=== PATIENT | male | born 1970 | race Caucasian/White ===

== ENCOUNTER 2024-01-03 15:20 | Outpatient (CLI) | payer OTHER, SELFPAY ==
--- NOTE | ~2024-01-03 | CT_ITS ---
EXAMINATION:CT lung screening DATE: 01/03/2024 15:43 INDICATION: Persistently of nicotine dependence. 30 pack year history. TECHNIQUE: Computed tomography (CT) of the chest was performed without intravenous contrast. Automate d exposure control and iterative reconstruction technique were employed. The dose-length product (DLP ) was 84.04 mGy-cm. COMPARISON: None. FINDINGS: A calcified left lung nodule is consistent with old granulomatous disease. There is no pneu monia or pleural effusion. The heart size is normal. There are coronary artery calcifications. No per icardial effusion. There is ectasia of ascending aorta measuring 4.0 cm. There is an old healed fract ure of right clavicle. There is mild thoracic spondylosis. IMPRESSION: 1. Lung-RADS category 1: Negative. Continue annual screening with noncontrast low-dose chest CT in 12 months. Reviewed, dictated and finalized at location A. PACKER IMPRESSION: 1. Lung-RADS category 1: Negative. Continue annual screening with noncontrast l ow-dose chest CT in 12 months.
== END 2024-01-03 15:21 | disposition home or self-care (01) ==
PROVIDERS: PCP Family Medicine; Visit Provider Family Medicine
DX: Z12.2 Encounter for screening for malignant neoplasm of respiratory organs (principal); Z87.891 Personal history of nicotine dependence
CPT/HCPCS: 71271

== ENCOUNTER 2024-04-07 15:07 | Outpatient (CLI) | payer OTHER, SELFPAY ==
--- NOTE | ~2024-04-07 | XR_ITS ---
EXAMINATION: No acute fracture. DATE: 04/07/2024 15:44 INDICATION: Left jaw pain. TECHNIQUE: 5 views of the mandible were obtained. COMPARISON: None. FINDINGS: Alignment is normal. No acute fracture. There is an old healed fracture of left mandible ra mus. There is plate and screw fixation of right body of the mandible. The temporomandibular joints ar e unremarkable. IMPRESSION: 1. No acute fracture. Reviewed, dictated and finalized at location A. N HIDE INSPECTOR IMPRESSION: 1. No acute fracture.
--- OUTSIDE RECORDS SUMMARY | 2024-04-07 15:13 | XMS_ITS | Clinical Summary ---
Author Organization [facility] Address [address] [place] [address] Care Team Providers Care Manager Workers Compensation Name Role Phone Prince Morales MD Primary Care Provider Allergies No known active allergies Medications HYDROcodone-maria victoria taminophen (NORCO) 5-325 MG tabletIndicatio ns:Acute Pain < 7 Day Supply,Clavicle fracture Take 1 tablet by mouth every 4 (four) hours as needed. 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 Gender Identity Not on file Sexual Orientation Not on file Last Filed Vital Signs Vital Sign Reading Time Taken Comments Blood Pressure 134/101 12/20/2021 5:20 PM CDT Pulse 77 12/20/2021 5:20 PM CDT Temperature 36.5 C (97.7 F) 12/20/2021 5:20 PM CDT Respiratory Rate 18 12/20/2021 5:20 PM CDT Oxygen Saturation 99% 12/20/2021 5:20 PM CDT Inhaled Oxygen Concentration - - Weight 72.6 kg (160 lb) 12/20/2021 5:20 PM CDT Height 170.2 cm (5' 7 ) 12/20/2021 5:20 PM CDT Body Mass Index 25.06 12/20/2021 5:20 PM CDT Plan of Treatment Health Maintenance Due Date Last Done Comments Colorectal Cancer Screening Colonoscopy (10 Years) 1968 Annual Physical 11/17/1971 Pneumococcal Vaccine: Pediatrics (0 to 5 Years) and At-Risk Patients (6 to 64 Years) (1 of 2 - PCV) 1974 Hepatitis C 1986 Hepatitis B Vaccines (1 of 3 - 19+ 3-dose series) 11/17/1987 Zoster Vaccines (1 of 2) 2018 COVID-19 Vaccine (3 - 2023-2 5 season) 2023 07/27/2020, 07/06/2020 Influenza Adult (#1) 2023 03/25/2018 DTaP, Tdap and Td Vaccines ( 2 - Td or Tdap) 06/12/2030 06/12/2020 Meningococcal B Vaccine Aged Out No l onger eligible based on patient's age to complete this topic Meningococcal Vaccine Aged Out No brittany capri eligible based on patient's age to complete this topic RSV Immunizations Under 20 Months Aged Out No longer eligible b ased on patient's age to complete this topic Insurance [employer] [place] Advance Directives Documents on File Type Date Recorded Patient Legal Executive 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
== END 2024-04-07 15:08 | disposition home or self-care (01) ==
PROVIDERS: PCP Family Medicine; Visit Provider Family Medicine
DX: R68.84 Jaw pain (principal)
CPT/HCPCS: 70110

== ENCOUNTER 2024-07-03 10:39 | Emergency (ER) | payer OTHER, SELFPAY ==
[2024-07-03] VITALS (18 sets, daily range): BP systolic 148–175; BP diastolic 102–122; PULSE 78–84; RESP 16–20; TEMP 36.6–36.9; O2SAT 94–98
--- NOTE | 2024-07-03 10:42 | ED_ITS ---
HPI - General Adult General Chief complaint: Headache Stated complaint: high blood pressure Time Seen by Provider: 07/03/24 10:41 Source: patient Mode of arrival: ambulatory Limitations: no limitations History of Present Illness HPI narrative: patient is 53-year-old white male comes in with his blood pressure elevated he said this morning it was 228/120. His primary care provider has been trying to figure out if he is as high blood pressure or not he saw him about a month and half ago with left jaw pain and infection and was treated with antibiotic and pain medicine. He had a history of left jaw fracture 3 years ago and has had recurrent infections and pain and was sent to the surgeon who want to get a CT done which is never been done yet. . patient has moderate his blood pressure couple times is been elevated but he has not had any treatment for this. Denies any chest pain back pain abdominal pain nausea vomiting diarrhea problems walking talking seeing or hearing eating or drinking voiding or stooling swelling lumps or bumps dizziness or lightheadedness or any other complaint he says he drinks pretty heavily. He said he drinks daily usually 3 shooters and 2 big boys which are 24 oz beers. Patient denies any other complai Related Data Allergies Allergy/AdvReac Type Severity Reaction Status Date / Time No Known Allergies Allergy Mild Verified 07/03/24 10:58 Review of Systems 2 Review of Systems: All systems reviewed & are unremarkable except as noted in HPI and below Exam 2 Narrative: White male patient with no apparent distress. Head normocephalic, atraumatic. Eyes conjunctiva pink sclera nonicteric. Extraocular movements are intact. Ears externally normal. Oropharynx is clear with moist mucous membranes without exudates. Neck is supple nontender no lymphadenopathy. hours normal size and consistency Back is nontender. Lungs are clear. Heart is regular rate and rhythm without murmurs gallops or rubs. Chest wall nontender. Abdomen is soft and nontender no hepatosplenomegaly or masses no CVA tenderness no abdominal bruits. Extremities no cyanosis clubbing or edema. Skin is warm and dry without rashes or lesions. Neurological patient is alert and oriented x 4. Motor and sensory grossly intact. Gait is normal. Course Vital Signs Vital signs: Vital Signs Temperature 36.9 C 07/03/24 10:41 Pulse Rate 84 07/03/24 10:41 Respiratory Rate 16 07/03/24 10:41 Blood Pressure 169/122 H 07/03/24 10:41 Pulse Oximetry 98 07/03/24 10:41 Oxygen Delivery Room Air 07/03/24 10:41 Temperature 36.9 C 07/03/24 10:41 Pulse Rate 84 07/03/24 10:41 Respiratory Rate 16 07/03/24 10:41 Blood Pressure 169/122 H 07/03/24 10:41 Pulse Oximetry 98 07/03/24 10:41 Oxygen Delivery Room Air 07/03/24 10:41 Medical Decision Making MDM Narrative Medical decision making narrative: Patient was placed in Room # 1 History and physical was performed. troponin,CBC CMP, magnesium, alcohol TSH normal Urine Independent Historian: patient External Source Review: Differential Dx includes but not limited to: hyperthyroidism hypertension anxiety electrolyte imbalance Medications were Reviewed: home meds reviewed Independently Interpreted by me: EKG shows sinus rhythm With rate of 77 or RS progression across precordium nonspecific ST T wave abnormalities impression abnormal EKG as independently interpreted by me. Meds, treatment, ED course: blood pressure was observed it to come down 151 over 102. Social Situation Impacting Patients Care: Shared decision Making: evaluation was discussed all questions were asked and answered patient agreed with plan will start him on lisinopril 5 mg he will see his doctor in the next 1-2 weeks. He will record his blood pressure 1-2 times per day Discussed with Dr. BROWNLEE DIAGNOSIS: hypertension alcohol abuse DISPOSITION: discharge patient CONDITION AT DISCHARGE: stable Vital Signs Vital Signs: Vital Signs Temperature 36.9 C 07/03/24 10:41 Pulse Rate 84 07/03/24 10:41 Respiratory Rate 16 07/03/24 10:41 Blood Pressure 169/122 H 07/03/24 10:41 Pulse Oximetry 98 07/03/24 10:41 Oxygen Delivery Room Air 07/03/24 10:41 Temperature 36.9 C 07/03/24 10:41 Pulse Rate 84 07/03/24 10:41 Respiratory Rate 16 07/03/24 10:41 Blood Pressure 169/122 H 07/03/24 10:41 Pulse Oximetry 98 07/03/24 10:41 Oxygen Delivery Room Air 07/03/24 10:41 Lab Data 07/03/24 11:17 07/03/24 11:17 Labs: Lab Results 07/03/24 07/03/24 Range/Units 11:06 11:17 WBC 7.7 (4.8-10.8) K/mm3 RBC 4.49 L (4.70-6.10) M/mm3 Hgb 14.7 (14.0-18.0) g/dL Hct 44.5 (40.0-54.0) % MCV 99.1 (78.0-102.0) fL MCH 32.7 H (27.0-31.0) pg MCHC 33.0 (32-36) g/dL RDW 13.1 (11.6-14.4) % Plt Count 276 (150-420) K/mm3 MPV 10.0 (8.7-11.0) fl Sodium 140 (136-145) mmol/L Potassium 4.1 (3.5-5.1) mmol/L Chloride 102 (98-108) mmol/L Carbon Dioxide 26 (21-32) mmol/L Anion Gap 12 (4-12) mmol/L BUN 11 (7-18) mg/dL Creatinine 1.03 (0.70-1.30) mg/dL Estim Creat Clear Calc 67 ml/min Estimated GFR > 60 (59 - ) Glucose 118 H (70-99) mg/dL Calculated Osmolality 290 (285-295) mOsm/kg Calcium 9.1 (8.5-10.1) mg/dL Magnesium 1.9 (1.8-2.4) mg/dL Total Bilirubin 0.7 (0.00-1.00) mg/dL AST 23 (15-37) U/L ALT 43 (16-63) U/L Alkaline Phosphatase 71 (46-116) U/L Troponin I 5.5 (0.00-60.4) ng/L Total Protein 7.8 (6.4-8.2) g/dL Albumin 3.9 (3.4-5.0) g/dL TSH 1.314 (0.465-4.680) uIU/mL Urine Color Light yellow (Yellow) Urine Appearance Clear (Clear) Urine pH 5.5 (5.0-8.0) Ur Specific [place] 1.025 H (1.010-1.020) Urine Protein Negative (Negative) Urine Glucose (UA) Negative (Negative) Urine Ketones Negative (Negative) Ur Blood (Man) Negative (Negative) Urine Nitrate Negative (Negative) Urine Bilirubin Negative (Negative) Urine Urobilinogen 0.2 (0.2-1.0) mg/dL Ur Leukocyte Esterase Trace H (Negative) Urine RBC None seen (0-2) /hpf Urine WBC 0-5 (0-3) /hpf Ur Squamous Epith Cells Few (Few) /hpf Urine Bacteria Trace (None) /hpf Ethyl Alcohol < 3 (0-6) mg/dL Discharge Plan Discharge Clinical Impression: Hypertension, uncontrolled, Alcohol abuse Patient Disposition: Home Condition: Stable Instructions: Hypertension (ED) Additional Instructions: lisinopril 5 mg daily see your primary care provider in 1 to [address] scan of your left jaw from your surgeon as previously discussed. Right done your blood pressure once or twice a day during morning noon and night bedtime with the comments section as discussed take that to both your doctors. Return if you get worse or develops any new symptoms Patient Language: Macedonian Prescriptions: New lisinopril 5 mg tablet 5 mg PO DAILY 30 Days Qty: 30 0RF Follow-up/Referrals: Akhil Sahni MD [Primary Care Provider] - Time of Disposition: 13:04
--- NOTE | 2024-07-03 11:06 | ECG_ITS ---
Test Date: 2024-07-03 11:15:40 Measurements Intervals [place] Rate: 77 P: 56 TX: 169 QRS: 17 QRSD: 70 T: 44 QT: 368 QTc: 417 Interpretive Statements SINUS RHYTHM SEPTAL MYOCARDIAL INFARCTION , PROBABLY OLD [40+ ms Q WAVE IN V1/V2] No previous ECG available for comparison Electronically Signed On 07-03-2024 11:26:49 CDT by Jarad Church M.D.
--- OUTSIDE RECORDS SUMMARY | 2024-07-03 11:10 | XMS_ITS | Clinical Summary ---
Author Organization [facility] Address [address] [place] [address] Care Team Providers Care Substation Mechanic Name Role Phone Prince Morales MD Primary Care Provider Allergies No known active allergies Medications HYDROcodone-maria victoria taminophen (NORCO) 5-325 MG tabletIndicatio ns:Acute Pain < 7 Day Supply,Clavicle fracture Take 1 tablet by mouth every 4 (four) hours as needed. 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 Gender Identity Not on file Sexual Orientation [...] Colonoscopy (10 Years) 1968 Annual Physical 11/17/1971 Hepatitis C 1986 Hepatitis B Vaccines (1 of 3 - 19+ 3-dose series) 11/17/1987 Pneumococcal Vaccine: 50+ Years (1 of 2 - PCV) 11/17/1987 Zoster Vaccines (1 of 2) 2018 COVID-19 Vaccine (3 - 2023-2 5 season) 2023 07/27/2020, 07/06/2020 DTaP, Tdap and Td Vaccines ( 2 [...] patient's age to complete this topic Insurance [facility] MED[employer]MENTS OF [place] Advance Directives Documents on File Type Date Recorded 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
[2024-07-03 11:21] LABS: Hematocrit 44.5 % (40.0-54.0); Hemoglobin 14.7 g/dL (14.0-18.0); Mean Corpuscular Hemoglobin 32.7 pg (27.0-31.0); Mean Corpuscular Volume 99.1 fL (78.0-102.0); Platelet Count Result 276 K/mm3 (150-420); Red Blood Count 4.49 M/mm3 (4.70-6.10); Red Cell Distribution Width 13.1 % (11.6-14.4); White Blood Count 7.7 K/mm3 (4.8-10.8)
[2024-07-03 11:37] LABS: Alanine Aminotransferase 43 U/L (16-63); Albumin Level 3.9 g/dL (3.4-5.0); Alkaline Phosphatase 71 U/L (46-116); Anion Gap 12 mmol/L (4-12); Aspartate Amino Transferase 23 U/L (15-37); Bilirubin,Total 0.7 mg/dL (0.00-1.00); Blood Urea Nitrogen 11 mg/dL (7-18); Calcium 9.1 mg/dL (8.5-10.1); Carbon Dioxide 26 mmol/L (21-32); Chloride 102 mmol/L (98-108); Estimated CRCL calculation 67 ml/min; Estimated Glomerular Filt Rate > 60; Glucose 118 mg/dL (70-99); Osmolality Calculated 290 mOsm/kg (285-295); Potassium 4.1 mmol/L (3.5-5.1); Sodium 140 mmol/L (136-145); Total Protein 7.8 g/dL (6.4-8.2)
[2024-07-03 11:38] LABS: Ethanol < 3 mg/dL (0-6)
--- OUTSIDE RECORDS SUMMARY | 2024-07-03 11:54 | XMS_ITS | Clinical Summary ---
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
[2024-07-03 11:57] LABS: Magnesium 1.9 mg/dL (1.8-2.4); Troponin I 5.5 ng/L (0.00-60.4)
[2024-07-03 12:04] LABS: Thyroid Stimulating Hormone 1.314 uIU/mL (0.465-4.680)
[2024-07-03 12:08] LABS: Add Urine Microscopic? YES; Appearance Urine Clear (Clear); Bilirubin Urine Negative (Negative); Blood Urine Negative (Negative); Color Urine Light Yellow (Yellow); Glucose Urine UA Negative (Negative); Ketones Urine Negative (Negative); Leukocyte Esterase Ur Trace (Negative); Nitrate Urine Negative (Negative); Protein Urine Negative (Negative); Specific Grav Ur 1.025 (1.010-1.020); Urobilinogen Urine 0.2 mg/dL (0.2-1.0); pH Urine 5.5 (5.0-8.0)
[2024-07-03 12:30] LABS: Bacteria Urine Trace /hpf; RBC Urine None seen /hpf (0-2); Squamous Epithelial Cell Urine Few /hpf (Few); WBC Urine 0-5 /hpf (0-3)
== END 2024-07-03 13:21 | disposition home or self-care (01) ==
PROVIDERS: Emergency Provider Emergency Medicine; PCP Family Medicine
DX: I10 Essential (primary) hypertension (principal); F10.10 Alcohol abuse, uncomplicated
CPT/HCPCS: 36415; 80053; 81001; 82077; 83735; 84443; 84484; 85027; 93005; 99284